=== PATIENT | female | born 1995 | race Hispanic/Latino ===

== ENCOUNTER 2019-01-08 14:16 | Outpatient (CLI) | payer OTHER ==
--- NOTE | 2019-01-09 09:46 | XRay Report ---
4 views lumbosacral spine. INDICATION / CLINICAL INFORMATION: LOWER BACK PAIN. COMPARISON: None available. FINDINGS: BONES/JOINT(S): No vertebral fracture. No significant degenerative changes. Normal bone mineralizatio n. No spondylolysis or spondylolisthesis. SOFT TISSUES: No significant abnormality. ADDITIONAL FINDINGS: None. Signer Name: Lv Islas MD Signed: 01/09/2019 8:42 AM Workstation Name: [id number]
== END 2019-01-08 14:17 | disposition home or self-care (01) ==
LOC: SPVIMAG 14:16
PROVIDERS: ATTEND Chiropractor
DX: M54.5 Low back pain (principal)
CPT/HCPCS: 72110